=== PATIENT | female | born 1955 | race Caucasian/White ===

== ENCOUNTER 2020-06-27 12:39 | Outpatient (CLI) | payer OTHER ==
[2020-06-28] MEDS ORDERED: LOSARTAN-HCTZ1 EACH PO (10:14)
[2020-06-28] MEDS ORDERED: FORTAMET500 MG PO (10:15)
[2020-06-28] MEDS ORDERED: CLARITIN10 M1 PO (10:15)
[2020-06-28] MEDS ORDERED: BREO ELLIPTA 21 EACH IH (10:16)
[2020-06-28] MEDS ORDERED: SINGULAIR10 MG PO (10:16)
== END 2020-06-27 12:49 | disposition home or self-care (01) ==
LOC: RAD 12:39
PROVIDERS: ATTEND Surgery
DX: I10 Essential (primary) hypertension (principal)

== ENCOUNTER 2020-07-05 07:00 | Day surgery (SDC) | payer OTHER ==
[~2020-07-05 07:00] MED LIST: BREO ELLIPTA 21 EACH IH; CLARITIN10 M1 PO; FORTAMET500 MG PO; LOSARTAN-HCTZ1 EACH PO; SINGULAIR10 MG PO
== END 2020-07-05 17:35 | disposition home or self-care (01) ==
LOC: CIR.AMB 07:00
PROVIDERS: ATTEND Surgery
DX: C50.212 Malignant neoplasm of upper-inner quadrant of left female breast (principal); Z20.822 Contact with and (suspected) exposure to COVID-19